=== PATIENT | male | born 1980 | race Caucasian/White ===

== ENCOUNTER 2016-09-10 09:33 | Emergency (ER) | payer BC ==
[~2016-09-10] VITALS: Wt 113.6 kg
[~2016-09-10 09:33] MED LIST: ACET500C5 PO; ALBU18HF INHALATION; AMO500 PO; AZIT250T94 PO; GUAI473L22 PO; HYDR-3498 PO; IBUP800T25 PO; PRED20 PO; PRED20TA PO
[2016-09-10 09:55] VITALS: Wt 113.6 kg
[2016-09-10] MEDS ORDERED: LIDOCAINE/MYLANTA 40 ML BTL PO STA (11:07)
[2016-09-10] MEDS ORDERED: FAMOTIDINE 20 MG TAB PO STA (11:07)
[2016-09-10] MEDS ORDERED: FAMO-18 PO (11:10)
--- NOTE | 2016-09-10 11:17 | ERD ---
ER Documentation Chief Complaint Date/Time DATE: 09/10/16 TIME: 11:10 Chief Complaint ABD CRAMPING W DIARRHEA HPI Patient is a 36-year-old male who presents to the emergency department with abdominal pain 3 days. Patient is that the pain is diffuse however, it is worse in the epigastric region. Patient states "it's burning with burping." Patient states the pain is occasionally crampy in nature. Patient states his current pain was is 1 out of 10. Patient reports one episode of nonbloody nonbilious vomiting yesterday. Patient states he is taking ibuprofen with some alleviation of his symptoms. Patient denies any diarrhea despite what the chief complaint states. Patient states he last had a bowel movement yesterday and it was normal soft and brown in color. Denies any pain with urination. Patient denies any fever, chills, nausea, chest pain and shortness breath, diaphoresis, arm pain, weakness, loss of consciousness. Patient denied any testicular pain, penile pain, penile discharge, pain with urination. ROS All systems reviewed and are negative except as per history of present illness. Medications Home Meds Active Scripts Famotidine* (Pepcid*) 20 Mg Tablet, 20 MG PO BID for 30 Days, TAB Prov:JAQUELIN MCCOLLUM PA-C 09/10/16 Acetaminophen* (Tylophen*) 500 Mg Capsule, 1 CAP PO Q6H Y for PAIN AND OR ELEVATED TEMP, #20 CAP Prov:AILEEN MAXWELL PA-C 01/20/16 Ibuprofen* (Motrin*) 800 Mg Tab, 800 MG PO Q6, #30 TAB Prov:AILEEN MAXWELL PA-C 01/20/16 Azithromycin* (Zithromax*) 250 Mg Tablet, 250 MG PO .SruthiPACK DIRECTED, #6 TAB TAKE 500 MG (2 TABS) THE FIRST DAY THEN 250 MG (1 TAB) DAYS 2-5 Prov:LUIS KING MD 12/11/15 Albuterol Sulfate* (Ventolin HFA*) 18 Gm Hfa.aer.ad, 2 PUFF INHALATION Q4H, #1 INHALER Prov:LUIS KING MD 12/11/15 Prednisone* (Prednisone*) 20 Mg Tab, 40 MG PO DAILY for 5 Days, TAB Prov:LUIS KING MD 12/11/15 Amoxicillin* (Amoxicillin*) 500 Mg Cap, 500 MG PO Q8, #30 CAP Prov:NIRAJ MCDONALD DO 11/29/15 Hydrocodone Bit-Acetaminophen* ([place]*) 5-325 Mg Tab, 1 TAB PO Q4H Y for PAIN, # 14 TAB Prov:NIRAJ MCDONALD DO 11/29/15 Prednisone (Prednisone) 20 Mg Tab, 40 MG PO DAILY, #5 TAB Prov:NIRAJ MCDONALD DO 11/29/15 Albuterol Sulfate* (Ventolin HFA*) 18 Gm Hfa.aer.ad, 2 PUFF INHALATION Q4H, #1 INHALER Prov:NIRAJ MCDONALD DO 11/29/15 Guaifenesin-Codeine Phosphate* (Guaifenesin* AC Cough Syrup) 473 Ml Liquid, 10 ML PO Q4H Y for COUGH, #240 ML Prov:POLLY MISHRA NP 10/02/15 Allergies Allergies: Coded Allergies: No Known Allergy (Unverified , 10/02/15) PMhx/Soc History of Surgery: Yes (MANDIBULAR SURGERY) Hx Respiratory Disorders: Yes (asthma) Hx Miscellaneous Medical Probl: Yes (borderline DM) Hx Alcohol Use: No Hx Substance Use: Yes (marijuana) Hx Tobacco Use: Yes Smoking Status: Current every day smoker FmHx Family History: diabetes Physical Exam Vitals Vital Signs Date Time Temp Pulse Resp B/P Pulse Ox O2 Delivery O2 Flow Rate FiO2 09/10/16 09:55 97.9 80 20 122/65 99 Physical Exam GENERAL: Well-developed, well-nourished male. Appears in no acute distress. HEAD: Normocephalic, atraumatic. EYES: Pupils are equally reactive bilaterally. EOMs grossly intact. No conjunctival erythema. ENT: Moist mucous membranes. No uvula deviation. No kissing tonsils. NECK: Supple. No lymphadenopathy or thyromegaly. No meningismus. LUNG: Clear to auscultation bilaterally. No rhonchi, wheezing, rales or coarse breath sounds. HEART: Regular rate and rhythm. No murmurs, rubs or gallops. ABDOMEN: No scars, ecchymosis or rashes noted. Soft, nontender, and nondistended. Positive bowel sounds in all four quadrants. No rebound tenderness , no guarding. (-) McBurneys point tenderness. No CVA tenderness. BACK: No midline tenderness. EXTREMITIES: Equal pulses bilaterally. No peripheral clubbing, cyanosis or edema. No unilateral leg swelling. NEUROLOGIC: Alert and oriented. Moving all four extremities without any difficulty. Normal speech. Steady gait. SKIN: Normal color. Warm and dry. No rashes or lesions. Results 24 hrs Current Medications Medications (Trade) Dose Ordered Sig/Melissa Route PRN Reason Start Time Stop Time Status Last Admin Dose Admin Famotidine (Pepcid) 20 mg ONCE STAT PO 09/10/16 11:07 09/10/16 11:09 DC 09/10/16 11:15 Miscellaneous Medication (Gi Cocktail (2)) 40 ml ONCE STAT PO 09/10/16 11:07 09/10/16 11:09 DC 09/10/16 11:15 Procedures/MDM MEDICAL DECISION MAKING: This is a 36-year-old male who presents emergency department with 3 days of his abdominal pain, worse in the epigastric region. Patient reports one episode of nonbloody nonbilious vomiting yesterday. Vital signs were reviewed. Patient is afebrile. Abdominal exam was unremarkable. He stated that he was no longer having any pain upon my examination. Patient was given a GI cocktail and famotidine here in the emergency department, which he states did improve his symptoms. At this time the patient's presentation is most consistent with gastritis versus abdominal pain of unknown etiology. I have a much lower clinical concern for acute coronary syndrome, AAA, mesenteric ischemia, lower lobe pneumonia, DKA, bowel perforation, bowel obstruction, cholecystitis, pancreatitis, splenic rupture, diverticulitis, UTI, pyelonephritis. PRESCRIPTIONS: Famotidine DISCHARGE: At this time, patient is stable for discharge and outpatient management. I have instructed the patient to follow-up with his/her primary care physician in 1-2 days. I have instructed the patient to promptly return to the ER at any time for any new or worsening symptoms including increased pain, nausea, vomiting, diarrhea, fever, weakness or LOC. The patient and/or family expressed understanding of and agreement with this plan. All questions were answered. Home care instructions were provided. Departure Diagnosis: Primary Impression: Abdominal pain Abdominal location: epigastric Qualified Code: R10.13 - Epigastric pain Condition: Stable Patient Instructions: Abdominal Pain, Gastritis (Adult) Referrals: [facility] YOU HAVE RECEIVED A MEDICAL SCREENING EXAM AND THE RESULTS INDICATE THAT YOU DO NOT HAVE A CONDITION THAT REQUIRES URGENT TREATMENT IN THE EMERGENCY DEPARTMENT. FURTHER EVALUATION AND TREATMENT OF YOUR CONDITION CAN WAIT UNTIL YOU ARE SEEN IN YOUR DOCTORS OFFICE WITHIN THE NEXT 1-2 DAYS. IT IS YOUR RESPONSIBILITY TO MAKE AN APPOINTMENT FOR FOLOW-UP CARE. IF YOU HAVE A PRIMARY DOCTOR --you should call your primary doctor and schedule an appointment IF YOU DO NOT HAVE A PRIMARY DOCTOR YOU CAN CALL OUR PHYSICIAN REFERRAL HOTLINE AT IF YOU CAN NOT AFFORD TO SEE A PHYSICIAN YOU CAN CHOSE FROM THE FOLLOWING [facility] [address] [facility] [address] [facility]. [facility] [address] [facility] [address] [facility] [facility] [address] [facility]. [facility]. [address] [facility]. [facility] YOU HAVE RECEIVED A MEDICAL SCREENING EXAM AND THE RESULTS INDICATE THAT YOU DO NOT HAVE A CONDITION THAT REQUIRES URGENT TREATMENT IN THE EMERGENCY DEPARTMENT. FURTHER EVALUATION AND TREATMENT OF YOUR CONDITION CAN WAIT UNTIL YOU ARE SEEN IN YOUR DOCTORS OFFICE WITHIN THE NEXT 1-2 DAYS. IT IS YOUR RESPONSIBILITY TO MAKE AN APPOINTMENT FOR FOLOW-UP CARE. IF YOU HAVE A PRIMARY DOCTOR --you should call your primary doctor and schedule and appointment IF YOU DO NOT HAVE A PRIMARY DOCTOR YOU CAN CALL OUR PHYSICIAN REFERRAL HOTLINE AT . IF YOU CAN NOT AFFORD TO SEE A PHYSICIAN YOU CAN CHOSE FROM THE FOLLOWING [facility] INSTITUTIONS: [facility] [address] [place] [address] [facility] [address] [place] [address] [facility] [address] [place] [address] Additional Instructions: Call your primary care doctor TOMORROW for an appointment during the next 1-2 days.See the doctor sooner or return here if your condition worsens before your appointment time. JAQUELIN MCCOLLUM PA-C Sep 10, 2016 11:17 JAQUELIN MCCOLLUM PA-C Sep 10, 2016 11:17
== END 2016-09-10 12:48 | disposition home or self-care (01) ==
LOC: FTE 09:33
DX: R10.13 Epigastric pain (principal); J45.909 Unspecified asthma, uncomplicated; F17.210 Nicotine dependence, cigarettes, uncomplicated
CPT/HCPCS: Z7610 ×2; 99283

== ENCOUNTER 2017-01-23 12:11 | Emergency (ER) | payer BC ==
[~2017-01-23] VITALS: Ht 185.4 cm; Wt 110.0 kg
[~2017-01-23 12:11] MED LIST changes: +FAMO-18 PO; -PRED20 PO
[2017-01-23 12:14] VITALS: Ht 185.4 cm; Wt 110.0 kg
--- NOTE | 2017-01-23 16:03 | ERD ---
ER Documentation Chief Complaint Date/Time DATE: 01/23/17 TIME: 16:01 Chief Complaint right arm pain, intermittent HPI 36-year-old male patient with no significant past medical history presents to the ED complaining of intermittent bilateral hand paresthesias that started 3 months ago. Reports that he feels like they twitch. Describes the pain as a sharp sensation and rates it a 4 out of 10. Denies any abdominal pain, head injuries, neck stiffness, fever, chills, nausea, vomiting, diarrhea. ROS All systems reviewed and are negative except as per history of present illness. Medications Home Meds Active Scripts Famotidine* (Pepcid*) 20 Mg Tablet, 20 MG PO BID for 30 Days, TAB Prov:JAQUELIN MCCOLLUM PA-C 09/10/16 Acetaminophen* (Tylophen*) 500 Mg Capsule, 1 CAP PO Q6H Y for PAIN AND OR ELEVATED TEMP, #20 CAP Prov:AILEEN MAXWELL PA-C 01/20/16 Ibuprofen* (Motrin*) 800 Mg Tab, 800 MG PO Q6, #30 TAB Prov:AILEEN MAXWELL PA-C 01/20/16 Azithromycin* (Zithromax*) 250 Mg Tablet, 250 MG PO .ZPACK DIRECTED, #6 TAB TAKE 500 MG (2 TABS) THE FIRST DAY THEN 250 MG (1 TAB) DAYS 2-5 Prov:LUIS KING MD 12/11/15 Albuterol Sulfate* (Ventolin HFA*) 18 Gm Hfa.aer.ad, 2 PUFF INHALATION Q4H, #1 INHALER Prov:LUIS KING MD 12/11/15 Prednisone* (Prednisone*) 20 Mg Tab, 40 MG PO DAILY for 5 Days, TAB Prov:LUIS KING MD 12/11/15 Amoxicillin* (Amoxicillin*) 500 Mg Cap, 500 MG PO Q8, #30 CAP Prov:NIRAJ MCDONALD DO 11/29/15 Hydrocodone Bit-Acetaminophen* ([place]*) 5-325 Mg Tab, 1 TAB PO Q4H Y for PAIN, # 14 TAB Prov:NIRAJ MCDONALD DO 11/29/15 Prednisone (Prednisone) 20 Mg Tab, 40 MG PO DAILY, #5 TAB Prov:NIRAJ MCDONALD DO 11/29/15 Albuterol Sulfate* (Ventolin HFA*) 18 Gm Hfa.aer.ad, 2 PUFF INHALATION Q4H, #1 INHALER Prov:NIRAJ MCDONALD DO 11/29/15 Guaifenesin-Codeine Phosphate* (Guaifenesin* AC Cough Syrup) 473 Ml Liquid, 10 ML PO Q4H Y for COUGH, #240 ML Prov:POLLY MISHRAChyna DOCUMENT REVIEWER 10/02/15 Allergies Allergies: Coded Allergies: No Known Allergy (Unverified , 10/02/15) PMhx/Soc History of Surgery: Yes (MANDIBULAR SURGERY) Hx Respiratory Disorders: Yes (asthma) Hx Miscellaneous Medical Probl: Yes (borderline DM) Hx Alcohol Use: No Hx Substance Use: Yes (marijuana) Hx Tobacco Use: Yes Smoking Status: Current every day smoker Physical Exam Vitals Vital Signs Date Time Temp Pulse Resp B/P Pulse Ox O2 Delivery O2 Flow Rate FiO2 01/23/17 12:14 98.6 85 18 140/79 99 Physical Exam Const: Npa-luk-muyosllzz, well-nourished. In no acute distress. Head: Atraumatic, normocephalic Eyes: Normal Conjunctiva without injection. No purulent discharge. PERRLA. EOMI ENT: Normal external ear. Ear canal without erythema. Tympanic membrane pearly padilla without effusion or bulging. Nasal canal clear with normal turbinates. Moist oropharynx without tonsillar exudates. Non-erythematous pharynx. Uvula midline. No drooling. No trismus. Neck: No cervical midline tenderness. Full range of motion. No meningismus. No cervical lymphadenopathy. No JVD. Resp: Clear to auscultation bilaterally. No wheezing, rhonchi, rales, or crackles. No accessory muscle use. No retractions. Cardio: Regular rate and rhythm. No murmurs, rubs or gallops. Skin: Normal skin turgor. No petechiae or rashes Ext: No cyanosis, or edema. Distal pulses intact bilaterally. Neur: Awake and alert. Normal gait. Normal coordination. Cranial Nerves II- VII intact. Normal finger to nose. Muscle strength 5/5. Sensation intact. Psych: Normal Mood and Affect Procedures/MDM 36-year-old male patient with no significant past medical history presents to the ED complaining of intermittent paresthesias of her bilateral hands. Patient is afebrile nontoxic appearing. Patient has normal vital signs. An EKG was ordered to further evaluate patient. EKG reviewed and interpreted by Dr. Mejia Rate/Rhythm: [67 bpm, Normal Sinus Rhythm] No ectopy, no ST elevations, no QT prolongation, normal axis. QRS, ST, T-waves: [No changes consistent w/ acute ischemia] Impression: [No evidence of ischemia or arrhythmia] Low suspicion for acute myocardial infarction, pneumothorax, pneumonia, cardiac tamponade, pulmonary embolism, AAA, aortic dissection, Boerhaave's syndrome, cardiac dysrhythmias,meningitis, intracranial bleed, seizure, stroke, TIA or other emergent conditions. Follow up with primary care physician in 1-2 days. Instructed patient to return to the ED sooner for any worsening symptoms. Patient's questions were answered. Patient understood and agreed with discharge plan. Patient discharged stable. Departure Diagnosis: Primary Impression: Paresthesias Condition: Stable Patient Instructions: Paraesthesias Referrals: [facility] YOU HAVE RECEIVED A MEDICAL SCREENING EXAM AND THE RESULTS INDICATE THAT YOU DO NOT HAVE A CONDITION THAT REQUIRES URGENT TREATMENT IN THE EMERGENCY DEPARTMENT. FURTHER EVALUATION AND TREATMENT OF YOUR CONDITION CAN WAIT UNTIL YOU ARE SEEN IN YOUR DOCTORS OFFICE WITHIN THE NEXT 1-2 DAYS. IT IS YOUR RESPONSIBILITY TO MAKE AN APPOINTMENT FOR FOLOW-UP CARE. IF YOU HAVE A PRIMARY DOCTOR --you should call your primary doctor and schedule an appointment IF YOU DO NOT HAVE A PRIMARY DOCTOR YOU CAN CALL OUR PHYSICIAN REFERRAL HOTLINE AT IF YOU CAN NOT AFFORD TO SEE A PHYSICIAN YOU CAN CHOSE FROM THE FOLLOWING [facility] CLINICS [facility] [address] [facility] [address] [facility]. [facility] [address] [facility] [address] [facility] [address] [facility]. [facility]. [address] [facility]. [facility] YOU HAVE RECEIVED A MEDICAL SCREENING EXAM AND THE RESULTS INDICATE THAT YOU DO NOT HAVE A CONDITION THAT REQUIRES URGENT TREATMENT IN THE EMERGENCY DEPARTMENT. FURTHER EVALUATION AND TREATMENT OF YOUR CONDITION CAN WAIT UNTIL YOU ARE SEEN IN YOUR DOCTORS OFFICE WITHIN THE NEXT 1-2 DAYS. IT IS YOUR RESPONSIBILITY TO MAKE AN APPOINTMENT FOR FOLOW-UP CARE. IF YOU HAVE A PRIMARY DOCTOR --you should call your primary doctor and schedule and appointment IF YOU DO NOT HAVE A PRIMARY DOCTOR YOU CAN CALL OUR PHYSICIAN REFERRAL HOTLINE AT . IF YOU CAN NOT AFFORD TO SEE A PHYSICIAN YOU CAN CHOSE FROM THE FOLLOWING [facility] INSTITUTIONS: [facility] [address] [place] [address] [facility] [address] [place] [address] [facility] [address] [place] [address] [facility] URGENT CARE/SPECIALTIES Additional Instructions: Call your primary care doctor TOMORROW for an appointment during the next 1-2 days.See the doctor sooner or return here if your condition worsens before your appointment time. MIGUEL ÁNGEL GONZALES PA-C January 23, 2017 16:03 MIGUEL ÁNGEL GONZALES PA-C January 23, 2017 16:03
== END 2017-01-23 15:54 | disposition home or self-care (01) ==
LOC: FTE 12:11
DX: R20.2 Paresthesia of skin (principal); J45.909 Unspecified asthma, uncomplicated; F17.210 Nicotine dependence, cigarettes, uncomplicated
CPT/HCPCS: 93005

== ENCOUNTER 2017-05-24 22:05 | Emergency (ER) | payer BC ==
[~2017-05-24] VITALS: Ht 182.9 cm; Wt 103.0 kg
[~2017-05-24 22:05] MED LIST changes: -AMO500 PO; +AMOX500C2 PO; -FAMO-18 PO; +FAMO-96 PO
[2017-05-24 22:10] VITALS: Ht 182.9 cm; Wt 103.0 kg
[2017-05-24] MEDS ORDERED: ALBU18HF INHALATION (23:24)
[2017-05-24] MEDS ORDERED: BENZ200C43 PO (23:24)
--- NOTE | 2017-05-25 00:36 | ERD ---
ER Documentation Chief Complaint Date/Time DATE: 05/25/17 TIME: 00:34 Chief Complaint cough x 1 day, colds, chills, vomiting, headache, sore throat HPI This patient is a 37-year-old male presenting to the emergency department with complaints of cough ongoing for 1 day. He also reports one episode of posttussive emesis which is intermittent. He was diagnosed with bronchitis at [facility] earlier today and given a prescription for an inhaler and discharged in stable condition. Patient is presenting stating he got no medication for cough. He denies shortness of breath, dizziness, nausea, vomiting, diarrhea, fever, or other symptoms currently. ROS All systems reviewed and are negative except as per history of present illness. Medications Home Meds Active Scripts Benzonatate* (Benzonatate*) 200 Mg Capsule, 200 MG PO TID Y for COUGH, #20 CAP Prov:DOMONIQUE MAYS PA-C 05/24/17 Albuterol Sulfate* (Ventolin HFA*) 18 Gm Hfa.aer.ad, 2 PUFF INHALATION Q4H, #1 INHALER Prov:DOMONIQUE MAYS PA-C 05/24/17 Famotidine* (Pepcid*) 20 Mg Tablet, 20 MG PO BID for 30 Days, TAB Prov:JAQUELIN MCCOLLUM PA-C 09/10/16 Acetaminophen* (Tylophen*) 500 Mg Capsule, 1 CAP PO Q6H Y for PAIN AND OR ELEVATED TEMP, #20 CAP Prov:AILEEN MAXWELL PA-C 01/20/16 Ibuprofen* (Motrin*) 800 Mg Tab, 800 MG PO Q6, #30 TAB Prov:AILEEN MAXWELL PA-C 01/20/16 Azithromycin* (Zithromax*) 250 Mg Tablet, 250 MG PO .SruthiPAFIDEL DIRECTED, #6 TAB TAKE 500 MG (2 TABS) THE FIRST DAY THEN 250 MG (1 TAB) DAYS 2-5 Prov:LUIS KING MD 12/11/15 Albuterol Sulfate* (Ventolin HFA*) 18 Gm Hfa.aer.ad, 2 PUFF INHALATION Q4H, #1 INHALER Prov:LUIS KING MD 12/11/15 Prednisone* (Prednisone*) 20 Mg Tab, 40 MG PO DAILY for 5 Days, TAB Prov:LUIS KING MD 12/11/15 Amoxicillin* (Amoxicillin*) 500 Mg Cap, 500 MG PO Q8, #30 CAP Prov:NIRAJ MCDONALD DO 11/29/15 Hydrocodone Bit-Acetaminophen* ([place]*) 5-325 Mg Tab, 1 TAB PO Q4H Y for PAIN, # 14 TAB Prov:NIRAJ MCDONALD DO 11/29/15 Prednisone (Prednisone) 20 Mg Tab, 40 MG PO DAILY, #5 TAB Prov:NIRAJ MCDONALD DO 11/29/15 Albuterol Sulfate* (Ventolin HFA*) 18 Gm Hfa.aer.ad, 2 PUFF INHALATION Q4H, #1 INHALER Prov:NIRAJ MCDONALD DO 11/29/15 Guaifenesin-Codeine Phosphate* (Guaifenesin* AC Cough Syrup) 473 Ml Liquid, 10 ML PO Q4H Y for COUGH, #240 ML Prov:POLLY MISHRA NP 10/02/15 Allergies Allergies: Coded Allergies: No Known Allergy (Unverified , 10/02/15) PMhx/Soc History of Surgery: Yes (MANDIBULAR SURGERY) Hx Respiratory Disorders: Yes (asthma) Hx Miscellaneous Medical Probl: Yes (borderline DM) Hx Alcohol Use: No Hx Substance Use: Yes (marijuana) Hx Tobacco Use: Yes Smoking Status: Current every day smoker Physical Exam Vitals Vital Signs Date Time Temp Pulse Resp B/P Pulse Ox O2 Delivery O2 Flow Rate FiO2 05/24/17 22:10 99.3 77 20 144/66 97 Physical Exam Const: Nontoxic, well-appearing male in no acute distress. Head: Atraumatic Eyes: Normal Conjunctiva ENT: Normal External Ears, Nose and Mouth. Neck: Full range of motion..~ No meningismus. Resp: Clear to auscultation bilaterally Cardio: Regular rate and rhythm, no murmurs Skin: No petechiae or rashes Back: No midline or flank tenderness Ext: No cyanosis, or edema Neur: Awake and alert Psych: Normal Mood and Affect Procedures/MDM 37-year-old male presents to the emergency department with complaints of cough. Vital signs are stable. Lung examination is essentially unremarkable. The patient likely has cough and bronchitis secondary to a viral upper respiratory infection. He is stable for outpatient management with a prescription for Ventolin and benzonatate. Low suspicion for life-threatening pathology at time of discharge. Follow-up with a primary care physician within 1-2 days advised. Strict ER return precautions were discussed. Departure Diagnosis: Primary Impression: Bronchitis Additional Impression: Cough Condition: Fair Patient Instructions: Bronchitis, No Antibiotic (Adult) Referrals: [facility] YOU HAVE RECEIVED A MEDICAL SCREENING EXAM AND THE RESULTS INDICATE THAT YOU DO NOT HAVE A CONDITION THAT REQUIRES URGENT TREATMENT IN THE EMERGENCY DEPARTMENT. FURTHER EVALUATION AND TREATMENT OF YOUR CONDITION CAN WAIT UNTIL YOU ARE SEEN IN YOUR DOCTORS OFFICE WITHIN THE NEXT 1-2 DAYS. IT IS YOUR RESPONSIBILITY TO MAKE AN APPOINTMENT FOR [facility]. IF YOU HAVE A PRIMARY DOCTOR --you should call your primary doctor and schedule an appointment IF YOU DO NOT HAVE A PRIMARY DOCTOR YOU CAN CALL OUR PHYSICIAN REFERRAL HOTLINE AT IF YOU CAN NOT AFFORD TO SEE A PHYSICIAN YOU CAN CHOSE FROM THE FOLLOWING [facility] [address] [facility]. [facility] [address] [facility]. [facility] [address] [facility] [address] [facility]. [facility] [address] [facility]. [facility]. [address] Additional Instructions: Follow up with your PCP within the next 1-3 days for a repeat evaluation. If you require a referral to a specialist, your Primary Care Provider may be able to provide this for you. In most patient cases, a referral is not required. If you have further questions regarding this matter, please ask your Primary Care Provider. Return the the emergency department immediately if symptoms worsen or change. If you have any questions regarding medications, ask your pharmacist or us before you leave. If any adverse reactions, occur while taking your medications, discontinue the treatment and return to the emergency department immediately. If any new or worsening symptoms, uncontrolled fevers, or other unexplained symptoms occur, return to the emergency department immediately. Take your medications as directed, and complete the entire course of treatment. DOMONIQUE MAYS PA-C May 25, 2017 00:36
== END 2017-05-25 00:29 | disposition home or self-care (01) ==
LOC: FTE 22:05
DX: J40 Bronchitis, not specified as acute or chronic (principal); F17.210 Nicotine dependence, cigarettes, uncomplicated
CPT/HCPCS: 99284

== ENCOUNTER 2017-06-03 07:46 | Emergency (ER) | payer BC ==
[~2017-06-03] VITALS: Ht 180.3 cm; Wt 101.5 kg
[~2017-06-03 07:46] MED LIST changes: +BENZ200C43 PO
[2017-06-03 07:48] VITALS: Ht 180.3 cm; Wt 101.5 kg
--- NOTE | 2017-06-03 08:31 | ERD ---
ER Documentation Chief Complaint Date/Time DATE: 06/03/17 TIME: 08:24 Chief Complaint Complains of SOB Hx of Asthma HPI This is a 37-year-old male who presents to the emergency department today stating that he feels short of breath and has a cough. Patient is here with his fiance who states that in the last 3 weeks he has gone to 3 different hospitals. States that he was admitted at [facility] for COPD a couple weeks ago but left AGAINST MEDICAL ADVICE because he "did not like the doctors there". States he does not use his inhaler like he is supposed to. States he is a former smoker and has not smoked since he was admitted a couple weeks ago. States he has felt chilled but denies any other new symptoms. She has not followed up with a primary care doctor or pulmonology specialist. ROS All systems reviewed and are negative except as per history of present illness. Medications Home Meds Active Scripts Benzonatate* (Benzonatate*) 200 Mg Capsule, 200 MG PO TID Y for COUGH, #20 CAP Prov:DOMONIUQE MAYS PA-C 05/24/17 Albuterol Sulfate* (Ventolin HFA*) 18 Gm Hfa.aer.ad, 2 PUFF INHALATION Q4H, #1 INHALER Prov:DOMONIQUE MAYS PA-C 05/24/17 Famotidine* (Pepcid*) 20 Mg Tablet, 20 MG PO BID for 30 Days, TAB Prov:JAQUELIN MCCOLLUM PA-C 09/10/16 Acetaminophen* (Tylophen*) 500 Mg Capsule, 1 CAP PO Q6H Y for PAIN AND OR ELEVATED TEMP, #20 CAP Prov:AILEEN MAXWELL PA-C 01/20/16 Ibuprofen* (Motrin*) 800 Mg Tab, 800 MG PO Q6, #30 TAB Prov:AILEEN MAXWELL PA-C 01/20/16 Azithromycin* (Zithromax*) 250 Mg Tablet, 250 MG PO .CRYSTAL DIRECTED, #6 TAB TAKE 500 MG (2 TABS) THE FIRST DAY THEN 250 MG (1 TAB) DAYS 2-5 Prov:LUIS KING MD 12/11/15 Albuterol Sulfate* (Ventolin HFA*) 18 Gm Hfa.aer.ad, 2 PUFF INHALATION Q4H, #1 INHALER Prov:LUIS KING MD 12/11/15 Prednisone* (Prednisone*) 20 Mg Tab, 40 MG PO DAILY for 5 Days, TAB Prov:LUIS KING MD 12/11/15 Amoxicillin* (Amoxicillin*) 500 Mg Cap, 500 MG PO Q8, #30 CAP Prov:NIRAJ MCDONALD DO 11/29/15 Hydrocodone Bit-Acetaminophen* ([place]*) 5-325 Mg Tab, 1 TAB PO Q4H Y for PAIN, # 14 TAB Prov:NIRAJ MCDONALD DO 11/29/15 Prednisone (Prednisone) 20 Mg Tab, 40 MG PO DAILY, #5 TAB Prov:NIRAJ MCDONALD DO 11/29/15 Albuterol Sulfate* (Ventolin HFA*) 18 Gm Hfa.aer.ad, 2 PUFF INHALATION Q4H, #1 INHALER Prov:NIRAJ MCDONALD DO 11/29/15 Guaifenesin-Codeine Phosphate* (Guaifenesin* AC Cough Syrup) 473 Ml Liquid, 10 ML PO Q4H Y for COUGH, #240 ML Prov:POLLY MISHRA NP 10/02/15 Allergies Allergies: Coded Allergies: No Known Allergy (Unverified , 10/02/15) PMhx/Soc History of Surgery: Yes (MANDIBULAR SURGERY) Hx Respiratory Disorders: Yes (asthma) Hx Miscellaneous Medical Probl: Yes (borderline DM) Hx Alcohol Use: No Hx Substance Use: Yes (marijuana) Hx Tobacco Use: Yes Smoking Status: Current every day smoker Physical Exam Vitals Vital Signs Date Time Temp Pulse Resp B/P Pulse Ox O2 Delivery O2 Flow Rate FiO2 06/03/17 07:48 98.3 56 20 139/71 98 Physical Exam Const: NAD Head: Atraumatic Eyes: Normal Conjunctiva ENT: Normal External Ears, Nose and Mouth. Neck: Full range of motion..~ No meningismus. Resp: Clear to auscultation bilaterally Cardio: Regular rate and rhythm, no murmurs Abd: Soft, non tender, non distended. Normal bowel sounds Skin: No petechiae or rashes Back: No midline or flank tenderness Ext: No cyanosis, or edema Neur: Awake and alert Psych: Normal Mood and Affect Results 24 hrs DIAGNOSTIC IMAGING REPORT Patient: JC SORTO : 1980 Age: 37 Sex: M MR #: [id number] DOS: 06/03/17 0000 Ordering MD: AILEEN MAXWELL PA-C Location: [facility] Room/Bed: PROCEDURE: CHEST RADIOGRAPH CLINICAL INDICATION: Cough. TECHNIQUE: Single frontal view of the chest were obtained. COMPARISON: 01/20/2016. FINDINGS: There is no consolidation or pleural effusion. There is no pneumothorax. The cardiomediastinal structures unremarkable. The visualized bony structures are unremarkable. IMPRESSION: Unremarkable single-view chest radiograph. RPTAT: HMZ .Xiang Romano MD, MD Date Time Electronically viewed and signed by .Xiang Romano MD, on 06/03/2017 09:44 .Z/ CC: AILEEN MAXWELL PA-C Procedures/MDM This is a 37-year-old male presents to the emergency department today complaining of shortness of breath and cough that has been ongoing for a while. Upon review of patient's medical records patient was seen here in the emergency department on May 24, 2017 with likely bronchitis. Patient had come to [facility] after evaluated earlier that day at [facility]. An TERRY report shows that the patient was admitted to [facility] on May 25 for COPD with acute exacerbation, anxiety disorder, nicotine dependence, cannabis use, bipolar disorder and a unspecified viral infection. Today patient denied any other past medical history. I explained to the patient and his fiance that he needs further evaluation by pulmonology specialist. She was afebrile and otherwise well-appearing. His oxygen saturation is 98%. I did explain to the patient that given his new complaints of chills and persistent cough I would obtain a chest x-ray. Chest x-ray is unremarkable. There is no consolidation or pleural effusion. There is no pneumothorax. At this time is consistent of shortness of breath possibly related to COPD as initial diagnosis at outside hospital. Low suspicion for pneumonia, PE, abscess , pleural effusion, pneumothorax. I did further explain to the patient that I would give him a list of pulmonology referrals. He may continue to take his inhaler as prescribed At this time the patient is stable for discharge and outpatient management. Patient should follow up with their PCP in the next 1-2 days. They may return to the emergency department sooner for any persistent or worsening of symptoms. Patient and fiance understood and agreed with the plan. Departure Diagnosis: Primary Impression: Shortness of breath Condition: AILEEN Reddy PA-C Jun 03, 2017 08:31
--- NOTE | 2017-06-03 09:44 | RADRPT ---
PROCEDURE: CHEST RADIOGRAPH CLINICAL INDICATION: Cough. TECHNIQUE: Single frontal view of the chest were obtained. COMPARISON: 01/20/2016. FINDINGS: There is no consolidation or pleural effusion. There is no pneumothorax. The cardiomediastinal stru ctures unremarkable. The visualized bony structures are unremarkable. IMPRESSION: Unremarkable single-view chest radiograph. RPTAT: HMZ .Xiang Romano MD, Date Time Electronically viewed and signed by .Xiang Romano MD, on 06/03/2017 09:44 .Z/
== END 2017-06-03 10:19 | disposition home or self-care (01) ==
LOC: FTE 07:46
DX: J45.909 Unspecified asthma, uncomplicated (principal); F17.210 Nicotine dependence, cigarettes, uncomplicated
CPT/HCPCS: 71010

== ENCOUNTER 2017-08-01 01:52 | Emergency (ER) | payer BC ==
[~2017-08-01] VITALS: Ht 182.9 cm; Wt 105.7 kg
[2017-08-01 01:57] VITALS: Ht 182.9 cm; Wt 105.7 kg
[2017-08-01] MEDS ORDERED: AMOX1TAB10 PO (02:49)
[2017-08-01] MEDS ORDERED: IBUP-1542 PO (02:49)
[2017-08-01] MEDS ORDERED: HYDR-906 PO (02:49)
--- NOTE | 2017-08-01 03:17 | ERD ---
ER Documentation Chief Complaint Chief Complaint toothache x 2wk. Dentist appt on 08/15. No relief w/current pain meds HPI 37-year-old male presents here to emergency department for complaint of left lower molar pain, has impacted more alert with tooth decay, is scheduled to have removal of the molar on 15 August. Patient continues to have pain, 8/10 scale, not better or worse with anything. Patient does not have any fever chills. Patient does not have any facial swelling. Able to open and close her mouth without any difficulty. ROS All systems reviewed and are negative except as per history of present illness. Medications Home Meds Active Scripts Hydrocodone/Acetaminophen (Valatie 5-325 Tablet) 1 Each Tablet, 1 TAB PO Q6H Y for SEVERE PAIN LEVEL 7-10, #20 TAB Prov:MIRYAM GALARZA NP 08/01/17 Ibuprofen* (Motrin*) 600 Mg Tab, 600 MG PO Q6H Y for PAIN AND OR ELEVATED TEMP, #30 TAB Prov:MIRYAM GALARZA NP 08/01/17 Amoxicillin/Potassium Clav (Amox-Clav 875-125 mg Tablet) 875-125 mg Tab, 1 TAB PO BID for 10 Days, #20 TAB Prov:MIRYAM GALARZA NP 08/01/17 Benzonatate* (Benzonatate*) 200 Mg Capsule, 200 MG PO TID Y for COUGH, #20 CAP Prov:DOMONIQUE MAYS PA-C 05/24/17 Albuterol Sulfate* (Ventolin HFA*) 18 Gm Hfa.aer.ad, 2 PUFF INHALATION Q4H, #1 INHALER Prov:DOMONIQUE MAYS PA-C 05/24/17 Famotidine* (Pepcid*) 20 Mg Tablet, 20 MG PO BID for 30 Days, TAB Prov:JAQUELIN MCCOLLUM PA-C 09/10/16 Acetaminophen* (Tylophen*) 500 Mg Capsule, 1 CAP PO Q6H Y for PAIN AND OR ELEVATED TEMP, #20 CAP Prov:AILEEN MAXWELL PA-C 01/20/16 Ibuprofen* (Motrin*) 800 Mg Tab, 800 MG PO Q6, #30 TAB Prov:AILEEN MAXWELL PA-C 01/20/16 Azithromycin* (Zithromax*) 250 Mg Tablet, 250 MG PO .ZPACK DIRECTED, #6 TAB TAKE 500 MG (2 TABS) THE FIRST DAY THEN 250 MG (1 TAB) DAYS 2-5 Prov:LUIS KING MD 12/11/15 Albuterol Sulfate* (Ventolin HFA*) 18 Gm Hfa.aer.ad, 2 PUFF INHALATION Q4H, #1 INHALER Prov:LUIS KING MD 12/11/15 Prednisone* (Prednisone*) 20 Mg Tab, 40 MG PO DAILY for 5 Days, TAB Prov:LUIS KING MD 12/11/15 Amoxicillin* (Amoxicillin*) 500 Mg Cap, 500 MG PO Q8, #30 CAP Prov:NIRAJ MCDONALD DO 11/29/15 Hydrocodone Bit-Acetaminophen* (Valatie*) 5-325 Mg Tab, 1 TAB PO Q4H Y for PAIN, # 14 TAB Prov:NIRAJ MCDONALD DO 11/29/15 Prednisone (Prednisone) 20 Mg Tab, 40 MG PO DAILY, #5 TAB Prov:NIRAJ MCDONALD DO 11/29/15 Albuterol Sulfate* (Ventolin HFA*) 18 Gm Hfa.aer.ad, 2 PUFF INHALATION Q4H, #1 INHALER Prov:NIRAJ MCDONALD DO 11/29/15 Guaifenesin-Codeine Phosphate* (Guaifenesin* AC Cough Syrup) 473 Ml Liquid, 10 ML PO Q4H Y for COUGH, #240 ML Prov:POLLY MISHRA NP 10/02/15 Allergies Allergies: Coded Allergies: No Known Allergy (Unverified , 08/01/17) PMhx/Soc History of Surgery: Yes (MANDIBULAR SURGERY) Anesthesia Reaction: No Hx Respiratory Disorders: Yes (asthma) Hx Cardiac Disorders: No Hx Psychiatric Problems: No Hx Miscellaneous Medical Probl: Yes (borderline DM) Hx Alcohol Use: Yes Hx Substance Use: Yes (marijuana) Hx Tobacco Use: Yes Smoking Status: Current every day smoker FmHx Family History: No coronary disease, No diabetes, No other Physical Exam Vitals Vital Signs Date Time Temp Pulse Resp B/P Pulse Ox O2 Delivery O2 Flow Rate FiO2 08/01/17 01:57 97.6 54 18 140/92 98 Physical Exam GENERAL: The patient is well developed and appropriate for usual state of health, in no apparent distress. HEENT: Atraumatic. Ears: Normal tympanic membrane, no erythema or bulging. No ear canal swelling. No ear discharge. Nose: normal nasal turbinates, no erythema or swelling. Normal nasal discharge. Throat: oropharynx clear. No tonsillar swelling or tonsillar exudates. No lymphadenopathy. Noted left lower third molar to be impacted with tooth decay. No facial swelling. CHEST: Clear to auscultation bilaterally. There are no rales, wheezes or rhonchi. HEART: Regular rate and rhythm. No murmurs, clicks, rubs or gallops. No S3 or S4. ABDOMEN: Soft, nontender and nondistended. Good bowel sounds. No rebound or guarding. No gross peritonitis. No gross organomegaly or masses. No Martinez sign or McBurney point tenderness. BACK: No midline or flank tenderness. EXTREMITIES: Equal pulses bilaterally. There is no peripheral clubbing, cyanosis or edema. No focal swelling or erythema. Full range of motion. Grossly neurovascularly intact. NEURO: Alert and oriented. Cranial nerves 2-12 intact. Motor strength in all 4 extremities with 5/5 strength. Sensation grossly intact. Normal speech and gait. SKIN: There is no apparent rash or petechia. The skin is warm and dry. HEMATOLOGIC AND LYMPHATIC: There is no evidence of excessive bruising or lymphedema. No gross cervical, axillary, or inguinal lymphadenopathy. Procedures/MDM Medical decision making: Patient symptoms was likely is consistent with dental pain, most likely from impacted molar and tooth decay, no symptoms of any dental abscess. No symptoms of any sepsis at this time, patient appears well and hemodynamically stable. Patient denies any trauma in affected area. Procedure was given for Augmentin, ibuprofen and Valatie, is advised to see dentist as per appointment and remove the impacted Ros[place]. Patient was advised to return to emergency department for any worsening symptoms. Disposition: Home. Stable. Departure Diagnosis: Primary Impression: Toothache Condition: Stable Patient Instructions: Dental Pain Referrals: [facility] ([facility] walk in clinic) MIRYAM GALARZA NP Aug 01, 2017 03:17
== END 2017-08-01 03:04 | disposition home or self-care (01) ==
LOC: FTE 01:52
DX: K08.89 Other specified disorders of teeth and supporting structures (principal); J45.909 Unspecified asthma, uncomplicated; F17.210 Nicotine dependence, cigarettes, uncomplicated
CPT/HCPCS: 99284

== ENCOUNTER → 2017-11-30 | Emergency (ER) | END | disposition home or self-care (01) ==

== ENCOUNTER 2017-12-13 10:08 | Emergency (ER) | END 2017-12-13 13:13 | disposition home or self-care (01) ==

== ENCOUNTER 2017-12-20 09:08 | Emergency (ER) | END 2017-12-20 12:36 | disposition home or self-care (01) ==

== ENCOUNTER 2017-12-28 16:52 | Emergency (ER) | END 2017-12-28 17:26 | disposition home or self-care (01) ==

== ENCOUNTER 2018-01-09 15:58 | Emergency (ER) | END 2018-01-09 18:40 | disposition home or self-care (01) ==

== ENCOUNTER 2018-01-25 13:01 | Emergency (ER) | END 2018-01-25 17:26 | disposition home or self-care (01) ==

== ENCOUNTER 2018-03-06 09:20 | Emergency (ER) | END 2018-03-06 11:52 | disposition home or self-care (01) ==

== ENCOUNTER 2018-03-22 09:07 | Emergency (ER) | END 2018-03-22 10:47 | disposition home or self-care (01) ==

== ENCOUNTER 2018-05-28 00:03 | Emergency (ER) | END 2018-05-28 05:03 | disposition home or self-care (01) ==

== ENCOUNTER 2018-09-19 13:41 | Emergency (ER) | payer BC ==
[~2018-09-19] VITALS: Wt 115.9 kg
[~2018-09-19 13:41] MED LIST changes: -ALBU18HF INHALATION; +ALBU8.5H8 INH; -AMOX500C2 PO; -AZIT250T94 PO; -BENZ200C43 PO; -FAMO-96 PO; -GUAI473L22 PO; -HYDR-3498 PO; +IBUP-1542 PO; -IBUP800T25 PO; +IBUP800T48 PO; -PRED20TA PO; +PRED50TA PO; +TRAM50TA2 PO
--- NOTE | 2018-09-19 17:53 | ERD ---
ER Documentation Chief Complaint Chief Complaint 'heavy breathing' since 'smoking wax' x1d. speaking compl sentence. no CP HPI 38-year-old male wanting to be checked for infection. Patient states that he smoked too much water marijuana yesterday, which caused him to feel nauseous and vomiting nonstop. He called the ambulance and was taken to [facility]. He was told at [place] that he had a systemic infection with elevated white blood cell count. However, he signed out AMA refusing further evaluation and treatment yesterday. He came back here today want to be evaluated for his infection. Patient also reports runny nose and diarrhea for 3 days. Along with shortness of breath on exertion and elevated heart rate at times. Denies vomiting today. Denies fever or chills. Denies abdominal pain. ROS All systems reviewed and are negative except as per history of present illness. Medications Home Meds Active Scripts Tramadol HCl (Tramadol HCl) 50 Mg Tablet, 50 MG PO Q6 PRN for SEVERE PAIN LEVEL 7-10, #20 TAB Prov:MIRYAM GALARZA NP 05/28/18 Ibuprofen* (Motrin*) 600 Mg Tab, 600 MG PO Q6H PRN for PAIN AND OR ELEVATED TEM P, #30 TAB Prov:MIRYAM GALARZA NP 05/28/18 Acetaminophen* (Tylophen*) 500 Mg Capsule, 1 CAP PO Q6H PRN for PAIN AND OR ELEVATED TEMP, #30 CAP Prov:AILEEN MAXWELL PA-C 03/22/18 Ibuprofen* (Motrin*) 600 Mg Tab, 600 MG PO Q6, #30 TAB Prov:AILEEN MAXWELL PA-C 03/22/18 Ibuprofen* (Motrin*) 800 Mg Tab, 800 MG PO Q6, #30 TAB Prov:ALEKS MACARIO PA-C 03/06/18 Prednisone* (Prednisone*) 50 Mg Tablet, 50 MG PO DAILY for 5 Days, TAB Prov:ENOC MELCHOR MD 01/25/18 Albuterol Sulfate* (Proair HFA*) 8.5 Gm Hfa.aer.ad, 2 PUFF INH Q6H PRN for WHEEZING AND SOB, #1 INHALER Prov:ENOC MELCHOR MD 01/25/18 Allergies Allergies: Coded Allergies: No Known Allergy (Unverified , 09/19/18) PMhx/Soc History of Surgery: Yes (MANDIBULAR SURGERY) Anesthesia Reaction: No Hx Respiratory Disorders: Yes (asthma) Hx Cardiac Disorders: No Hx Psychiatric Problems: No Hx Miscellaneous Medical Probl: Yes (borderline DM) Hx Alcohol Use: Yes (socially) Hx Substance Use: Yes (marijuana) Hx Tobacco Use: Yes Smoking Status: Current every day smoker Physical Exam Vitals Vital Signs Date Temp Pulse Resp B/P (MAP) Pulse Ox O2 O2 Flow FiO2 Time Delivery Rate 09/19/18 98.8 78 16 141/73 96 13:46 (95) Physical Exam General: Well-developed, well-nourished, conscious and coherent, in no distress Skin: Warm and dry without rash, good texture and turgor Head: Normocephalic without evidence of trauma Nose/Face: Without rhinorrhea Neck: Supple without meningismus or adenopathy. Carotids are equal. Trachea midline. No bruits or JVD Chest: Normal AP diameter. Good expansion without retractions. Nontender. Lungs are clear to auscultate bilaterally with good tidal volume Heart: Regular rate and rhythm. No murmur, rub, or gallops heard Abdomen: Soft and nontender without masses, guarding, or rebound. Bowel sounds are active. No hepatosplenomegaly Extremities: Full range of motion. Good strength bilaterally. No erythema, ecchymosis, or edema. Peripheral pulses are intact. Sensation intact Neuro: Alert and oriented 4, GCS 15. Result Diagram: 09/19/18 1621 09/19/18 1621 Results 24 hrs Laboratory Tests Test 09/19/18 16:11 09/19/18 16:21 Urine Color YELLOW Urine Clarity CLOUDY Urine pH 7.0 Urine Specific [place] 1.019 Urine Ketones NEGATIVE mg/dL Urine Nitrite NEGATIVE mg/dL Urine Bilirubin NEGATIVE mg/dL Urine Urobilinogen NEGATIVE mg/dL Urine Leukocyte Esterase NEGATIVE Kale/ul Urine Microscopic RBC 0 /HPF Urine Microscopic WBC 0 /HPF Urine Amorphous Crystals FEW /HPF Urine Hemoglobin NEGATIVE mg/dL Urine Glucose NEGATIVE mg/dL Urine Total Protein NEGATIVE mg/dl Urine Opiates Screen Negative Urine Barbiturates Negative Urine Amphetamines Screen Negative Urine Benzodiazepines Screen Negative Urine Cocaine Screen Negative Urine Cannabinoids Positive White Blood Count 8.2 10^3/ul Red Blood Count 5.37 10^6/ul Hemoglobin 13.9 g/dl Hematocrit 43.2 % Mean Corpuscular Volume 80.4 fl Mean Corpuscular Hemoglobin 25.9 pg Mean Corpuscular Hemoglobin Concent 32.2 g/dl Red Cell Distribution Width 14.2 % Platelet Count 229 10^3/UL Mean Platelet Volume 11.3 fl Immature Granulocytes % 0.400 % Neutrophils % 65.3 % Lymphocytes % 24.5 % Monocytes % 7.4 % Eosinophils % 2.2 % Basophils % 0.2 % Nucleated Red Blood Cells % 0.0 /100WBC Immature Granulocytes # 0.030 10^3/ul Neutrophils # 5.4 10^3/ul Lymphocytes # 2.0 10^3/ul Monocytes # 0.6 10^3/ul Eosinophils # 0.2 10^3/ul Basophils # 0.0 10^3/ul Nucleated Red Blood Cells # 0.0 10^3/ul Sodium Level 143 mmol/L Potassium Level 4.1 mmol/L Chloride Level 107 mmol/L Carbon Dioxide Level 27 mmol/L Anion Gap 9 Blood Urea Nitrogen 20 mg/dl Creatinine 1.16 mg/dl Est Glomerular Filtrat Rate mL/min > 60 mL/min Glucose Level 110 mg/dl Calcium Level 9.5 mg/dl Total Bilirubin 0.0 mg/dl Direct Bilirubin 0.00 mg/dl Indirect Bilirubin 0.0 mg/dl Aspartate Amino Transf (AST/SGOT) 20 IU/L Alanine Aminotransferase (ALT/SGPT) 25 IU/L Alkaline Phosphatase 72 IU/L Total Protein 6.8 g/dl Albumin 4.1 g/dl Globulin 2.70 g/dl Albumin/Globulin Ratio 1.51 Procedures/MDM CBC: no e/o of systemic infection or severe anemia CMP: no e/o severe acidosis, alkalosis, renal failure, diabetic ketoacidosis, liver disease Urine: no e/o acute infection or hematuria Chest X-ray 1V Interpreted by me: Soft Tissue: No acute abnor malities Bones: No acute abnormalities Mediastinum/Cardiac Silhouette/Lungs: No acute abnormalities, mild right lower lobe atelectasis. Urine drug screen is positive for cannabinoids, but negative for everything else. Patient does not have any sign of systemic infection at this time. I think likely the elevated white blood cell count yesterday is secondary to hyperemesis after cannabis consumption. Although patient reports shortness of breath on exertion, he has no sign of pneumonia, pneumothorax, CHF, or PE. Patient appears well, stable for discharge and outpatient management. Medical decision making shared with patient and family. Education provided to patient and family. Patient and family expressed understanding of the plan. Medications on discharge: None. Follow-up: Primary care provider in 2-3 days or return to ED if worse. Disclaimer: Inadvertent spelling and grammatical errors are likely due to EHR/dictation software use and do not reflect on the overall quality of patient care. Also, please note that the electronic time recorded on this note does not necessarily reflect the actual time of the patient encounter. Departure Diagnosis: Primary Impression: Shortness of breath Condition: Stable Patient Instructions: Normal Exam, (Child) (Adult) Referrals: PENDING SALE TO [facility] YOU HAVE RECEIVED A MEDICAL SCREENING EXAM AND THE RESULTS INDICATE THAT YOU DO NOT HAVE A CONDITION THAT REQUIRES URGENT TREATMENT IN THE EMERGENCY DEPARTMENT. FURTHER EVALUATION AND TREATMENT OF YOUR CONDITION CAN WAIT UNTIL YOU ARE SEEN IN YOUR DOCTORS OFFICE WITHIN THE NEXT 1-2 DAYS. IT IS YOUR RESPONSIBILITY TO MAKE AN APPOINTMENT FOR FOLOW-UP CARE. IF YOU HAVE A PRIMARY DOCTOR --you should call your primary doctor and schedule an appointment IF YOU DO NOT HAVE A PRIMARY DOCTOR YOU CAN CALL OUR PHYSICIAN REFERRAL HOTLINE AT IF YOU CAN NOT AFFORD TO SEE A PHYSICIAN YOU CAN CHOSE FROM THE FOLLOWING [facility] [address] [facility]. [facility] [address] [facility]. [place] [address] [facility] [facility] [address] [facility]. [facility] [address] [facility]. [facility]. [address] Additional Instructions: Call your primary care doctor TOMORROW for an appointment during the next 2-3 days.See the doctor sooner or return here if your condition worsens before your appointment time. LUCRECIA GARCIAS NP Sep 19, 2018 17:53
[2018-09-19 18:01] VITALS: BP 156/82; PULSE 56; RESP 16
== END 2018-09-19 18:03 | disposition home or self-care (01) ==
LOC: FTE 13:41
DX: R06.02 Shortness of breath (principal); E11.9 Type 2 diabetes mellitus without complications; F17.210 Nicotine dependence, cigarettes, uncomplicated; J45.909 Unspecified asthma, uncomplicated
CPT/HCPCS: 71045; 80053; 80307; 81001; 85025

== ENCOUNTER 2019-01-17 08:36 | Emergency (ER) | payer BC ==
[~2019-01-17] VITALS: Ht 182.9 cm; Wt 101.0 kg
[2019-01-17 08:38] VITALS: BP 153/90; PULSE 52; RESP 18; Ht 182.9 cm; Wt 101.0 kg
[2019-01-17] MEDS ORDERED: KETOROLAC 60 MG INJ IM STA ×2 (08:52→09:25)
[2019-01-17] MEDS ORDERED: METHYLPREDNISOLONE 125 MG INJ IM ONE (09:00)
[2019-01-17] MEDS ORDERED: CYCL10TA7 PO (09:26)
[2019-01-17] MEDS ORDERED: IBUP800T48 PO (09:26)
--- NOTE | 2019-01-17 09:32 | ERD ---
ER Documentation Chief Complaint Chief Complaint pt is bib self with c/o back pain for 5-6 days unk cause HPI This is a 38 year-old male who presents ED with complaints of right upper back pain x1 week. Patient denies any fall or injury to account for pain. Pain aggravated by movement and twisting. Alleviated by ibuprofen. Patient has had similar pain in the past and was treated with ibuprofen and muscle relaxer. Denies fever, chills, chest pain, shortness of breath, trouble breathing, cough, bowel/bladder incontinence, history of IV drug abuse, saddle paresthesias and all other symptoms. No known drug allergies. ROS All systems reviewed and are negative except as per history of present illness. Medications Home Meds Active Scripts Ibuprofen* (Motrin*) 800 Mg Tab, 800 MG PO Q6, #30 TAB Prov:SHELIA DONNELLY PA-C 01/17/19 Cyclobenzaprine Hcl* (Cyclobenzaprine Hcl*) 10 Mg Tablet, 10 MG PO TID, #9 TAB Prov:SHELIA DONNELLY PA-C 01/17/19 Tramadol HCl (Tramadol HCl) 50 Mg Tablet, 50 MG PO Q6 PRN for SEVERE PAIN LEVEL 7-10, #20 TAB Prov:MIRYAM GALARZA NP 05/28/18 Ibuprofen* (Motrin*) 600 Mg Tab, 600 MG PO Q6H PRN for PAIN AND OR ELEVATED TEMP, #30 TAB Prov:MIRYAM GALARZA NP 18 Acetaminophen* (Tylophen*) 500 Mg Capsule, 1 CAP PO Q6H PRN for PAIN AND OR ELEVATED TEMP, #30 CAP Prov:AILEEN MAXWELL PA-C 03/22/18 Ibuprofen* (Motrin*) 600 Mg Tab, 600 MG PO Q6, #30 TAB Prov:AILEEN MAXWELL PA-C 03/22/18 Ibuprofen* (Motrin*) 800 Mg Tab, 800 MG PO Q6, #30 TAB Prov:ALEKS MACARIO PA-C 03/06/18 Prednisone* (Prednisone*) 50 Mg Tablet, 50 MG PO DAILY for 5 Days, TAB Prov:ENOC MELCHOR MD 01/25/18 Albuterol Sulfate* (Proair HFA*) 8.5 Gm Hfa.aer.ad, 2 PUFF INH Q6H PRN for WHEEZING AND SOB, #1 INHALER Prov:ENOC MELCHOR MD 01/25/18 Allergies Allergies: Coded Allergies: No Known Allergy (Unverified , 09/19/18) PMhx/Soc History of Surgery: Yes (MANDIBULAR SURGERY) Anesthesia Reaction: No Hx Respiratory Disorders: Yes (asthma) Hx Cardiac Disorders: No Hx Psychiatric Problems: No Hx Miscellaneous Medical Probl: Yes (borderline DM) Hx Alcohol Use: Yes (socially) Hx Substance Use: Yes (marijuana) Hx Tobacco Use: Yes Smoking Status: Current every day smoker FmHx Family History: No diabetes Physical Exam Vitals Vital Signs Date Temp Pulse Resp B/P (MAP) Pulse Ox O2 O2 Flow FiO2 Time Delivery Rate 01/17/19 98.4 52 18 153/90 100 08:38 (111) Physical Exam Physical Exam Vitals signs: Reviewed by me. General: Well developed, well nourished, in no acute distress. Patient is awake and alert. Head: Normocephalic, atraumatic. Eyes: Normal conjunctiva, Pupils PERRLA, EOM intact grossly ENT: Pharynx is clear, Moist mucous membranes, external ears, nose and mouth normal Neck: Supple, no masses, lymphadenopathy or JVD Respiratory: Clear to auscultation bilaterally with no wheezing, rhonchi, rales, no distress Cardiovascular: RRR, no murmurs, rubs, or gallops Back: No midline tenderness. No thoracic or lumbar midline tenderness, there is mild tenderness palpation along the paravertebral muscles in the upper back region, no decreased range of motion with flexion, extension and left and right lateral rotation Neurologic: Alert and oriented, moving all extremities, normal speech, no focal weakness, no cerebellar signs. Normal mentation Skin: warm and dry, No rash Psych: Normal mood Results 24 hrs Current Medications Medications Dose Sig/Melissa Start Time Status Last (Trade) Ordered Route PRN Stop Time Admin Dose Reason Admin Ketorolac 60 mg ONCE STAT 01/17/19 DC Tromethamine IM 08:52 (Toradol) 01/17/19 08:55 125 mg ONCE ONCE 01/17/19 DC Methylprednis IM 09:00 olone Sodium 01/17/19 09:00 Succinate (Solu-Medrol) Ketorolac 60 mg ONCE STAT 01/17/19 DC Tromethamine IM 09:25 (Toradol) 01/17/19 09:26 Procedures/MDM ER COURSE: The patient was given Toradol The medication was well tolerated and the patient reports improvement in symptoms. The patient was stable throughout ED course. I kept the patient and/or family informed of laboratory and diagnostic imaging results throughout the emergency room course. The patient was promptly evaluated and a treatment plan was devised based on H&P and other data. This plan was discussed with the patient who agreed and had no further questions or concerns prior to discharge. MEDICAL DECISION MAKIN-year-old male presents ED with complaints of upper back pain. Given history of having similar pain in the past and location of back pain being along the paravertebral muscles this is likely a muscle strain or muscle related pain. History and physical examination other data not consistent with processing including cauda equina syndrome, cord compression, infiltrative etiology, infectious etiology, epidural abscess, fracture, obstructive pyelonephritis, abdominal aortic aneurysm. Vitals are stable and patient can be managed outpatient with close follow-up. Advised patient to follow up with primary care in the next 48 hours. return to ED with any worsening symptoms DISPOSITION PLAN: We discussed follow up with the patient's primary care doctor within 24 to 48 hours. Patient counseled regarding my diagnostic impression and care plan. Prior to discharge all questions answered. Pt agrees with treatment plan and understands strict return precautions. Precautionary instructions provided including instructions to return to the ER if not improving or for any worsening or changing symptoms or concerns. SPECIALIST FOLLOW UP RECOMMENDED: None Patient has been advised to follow up with primary care in 1-2 days. Disclaimer: Inadvertent spelling and grammatical errors are likely due to EHR/dictation software use and do not reflect on the overall quality of patient care. Also, please note that the electronic time recorded on this note does not necessarily reflect the actual time of the patient encounter. Blood Pressure Assessment: Patient's blood pressure was elevated (>120/80) but appears stable without evidence of hypertension emergency or urgency. The patient was counseled about the risks of hypertension and urged to pursue outpatient monitoring and therapy within a week with their primary care physician. Departure Diagnosis: Primary Impression: Back pain Back pain location: thoracic back pain Chronicity: acute Back pain laterality: right Qualified Codes: M54.6 - Pain in thoracic spine Condition: Stable Patient Instructions: Back Pain (Acute Or Chronic) Referrals: COMMUNITY CLINICS YOU HAVE RECEIVED A MEDICAL SCREENING EXAM AND THE RESULTS INDICATE THAT YOU DO NOT HAVE A CONDITION THAT REQUIRES URGENT TREATMENT IN THE EMERGENCY DEPARTMENT. FURTHER EVALUATION AND TREATMENT OF YOUR CONDITION CAN WAIT UNTIL YOU ARE SEEN IN YOUR DOCTORS OFFICE WITHIN THE NEXT 1-2 DAYS. IT IS YOUR RESPONSIBILITY TO MAKE AN APPOINTMENT FOR FOLOW-UP CARE. IF YOU HAVE A PRIMARY DOCTOR --you should call your primary doctor and schedule an appointment IF YOU DO NOT HAVE A PRIMARY DOCTOR YOU CAN CALL OUR PHYSICIAN REFERRAL HOTLINE AT IF YOU CAN NOT AFFORD TO SEE A PHYSICIAN YOU CAN CHOSE FROM THE FOLLOWING [facility] CLINICS [facility] [address] [facility]. [facility] [address] [facility]. [facility] [address] [facility]. [facility] [address] [facility]. [facility] [address] [facility] [facility] [address] Additional Instructions: Patient advised to return to the ED immediately for new or worsening symptoms. Patient advised to follow up with primary care provider in the next 24-48 hours. Patient verbalized understanding and agrees with treatment plan and course of action. If patient has no primary care they may follow up with one of the [facility] clinics listed on the following page or one of the options listed below [facility] + [facility] [address] [place] [address] or [facility] [address] [place] [address] or [facility] [address] [place] [address] SHELIA DONNELLY PA-C January 17, 2019 09:32
== END 2019-01-17 10:01 | disposition home or self-care (01) ==
LOC: FTE 08:36
DX: M54.6 Pain in thoracic spine (principal); J45.909 Unspecified asthma, uncomplicated; F17.210 Nicotine dependence, cigarettes, uncomplicated
CPT/HCPCS: 96372; 99284; J1885

== ENCOUNTER 2019-02-11 08:30 | Emergency (ER) | payer BC ==
[~2019-02-11] VITALS: Ht 182.9 cm; Wt 114.6 kg
[~2019-02-11 08:30] MED LIST changes: +CYCL10TA7 PO
[2019-02-11 08:42] VITALS: BP 147/82; PULSE 63; RESP 18; Ht 182.9 cm; Wt 114.6 kg
--- NOTE | 2019-02-11 09:15 | ERD ---
ER Documentation Chief Complaint Chief Complaint DIARRHEA W/AP X1 DAY GENERALIZE ITCHY RASH ON/OFF HPI 38-year-old male presents to ED with complaints of nonbloody diarrhea x2 days. He reports that he went to the local food bank and got a questionable egg which he ate. He woke up next morning with an episode of diarrhea and then diarrhea continued up to today which is why he came to the ED. he denies any changes to his eating habit. He reports that he ate a huge burger and fries last night. Denies any nausea or vomiting or abd pain. He denies any past medical history. He states that he is feeling okay currently. He denies any fevers, any sick contacts, any recent travel. He also reports a rash that began on his back and has spread in a Thompson tree pattern down his back. ROS All systems reviewed and are negative except as per history of present illness. Medications Home Meds Active Scripts Ibuprofen* (Motrin*) 800 Mg Tab, 800 MG PO Q6, #30 TAB Prov:SHELIA DONNELLY PA-C 01/17/19 Cyclobenzaprine Hcl* (Cyclobenzaprine Hcl*) 10 Mg Tablet, 10 MG PO TID, #9 TAB Prov:SHELIA DONNELLY PA-C 01/17/19 Tramadol HCl (Tramadol HCl) 50 Mg Tablet, 50 MG PO Q6 PRN for SEVERE PAIN LEVEL 7-10, #20 TAB Prov:MIRYAM GALARZA NP 05/28/18 Ibuprofen* (Motrin*) 600 Mg Tab, 600 MG PO Q6H PRN for PAIN AND OR ELEVATED TEMP, #30 TAB Prov:MIRYAM GALARZA NP 05/28/18 Acetaminophen* (Tylophen*) 500 Mg Capsule, 1 CAP PO Q6H PRN for PAIN AND OR ELEVATED TEMP, #30 CAP Prov:AILEEN MAXWELL PA-C 03/22/18 Ibuprofen* (Motrin*) 600 Mg Tab, 600 MG PO Q6, #30 TAB Prov:AILEEN MAXWELL PA-C 03/22/18 Ibuprofen* (Motrin*) 800 Mg Tab, 800 MG PO Q6, #30 TAB Prov:ALEKS MACARIO PA-C 03/06/18 Prednisone* (Prednisone*) 50 Mg Tablet, 50 MG PO DAILY for 5 Days, TAB Prov:ENOC MELCHOR MD 01/25/18 Albuterol Sulfate* (Proair HFA*) 8.5 Gm Hfa.aer.ad, 2 PUFF INH Q6H PRN for WHEEZING AND SOB, #1 INHALER Prov:ENOC MELCHOR MD 01/25/18 Allergies Allergies: Coded Allergies: No Known Allergy (Unverified , 09/19/18) PMhx/Soc Medical and Surgical Hx: pt denies Medical Hx History of Surgery: Yes (MANDIBULAR SURGERY) Anesthesia Reaction: No Hx Respiratory Disorders: Yes (asthma) Hx Cardiac Disorders: No Hx Psychiatric Problems: No Hx Miscellaneous Medical Probl: Yes (borderline DM) Hx Alcohol Use: Yes (socially) Hx Substance Use: Yes (marijuana) Hx Tobacco Use: Yes FmHx Family History: No diabetes Physical Exam Vitals Vital Signs Date Temp Pulse Resp B/P (MAP) Pulse Ox O2 O2 Flow FiO2 Time Delivery Rate 02/11/19 97.3 63 18 147/82 96 08:42 (103) Physical Exam Const: No acute distress Head: Atraumatic Eyes: Normal Conjunctiva ENT: Normal External Ears, Nose and Mouth. Neck: Full range of motion. Resp: Clear to auscultation bilaterally Cardio: Regular rate and rhythm Abd: Soft, non tender, obese. Normal bowel sounds Skin: Nonspecific erythematous rash on his mid back that blanches and does not bleed. Rash slightly spreading to his abdomen Back: No midline or flank tenderness Ext: No cyanosis, or edema Neur: Awake and alert Psych: Normal Mood and Affect Procedures/MDM ED COURSE: The patient was stable throughout ED course. I kept the patient informed of laboratory and diagnostic imaging results throughout the ED course. MEDICATIONS GIVEN: [None.] MEDICAL DECISION MAKING: Patient is a 38-year-old male complaining about diarrhea after eating a q uestionable egg he got from [employer]. Reports several episodes of nonbloody diarrhea but states that he is eating well still. He denies any fevers or any abdominal pain or any signs of dehydration. I have low suspicion for other emergent processess such as mesenteric ischemia, lower lobe pneumonia, DKA, bowel perforation, cholecystitis, choledocholithiasis, ascending cholangitis, hepatic abscess, pancreatitis, PUD, gastritis, GERD, splenic rupture, diverticulitis, UTI, pyelonephritis, nephrolithiasis, appendicitis, constipation. Vital signs were reviewed. Patient is afebrile. Patient was not hypoxic. Patient was hemodynamically stable. PRESCRIPTION: None DISCHARGE: At this time, patient is stable for discharge and outpatient management. I have instructed the patient to follow-up with his/her primary care physician in 1-2 days. I have discussed with the patient the possibility of needing to see a specialist for further workup and imaging studies if symptoms persist. I have instructed the patient to promptly return to the ER for any new or worsening symptoms including increased pain, fever, nausea, vomiting, weakness or LOC. The patient and/or family expressed understanding of and agreement with this plan. All questions were answered. Home care instructions were provided. Disclaimer: Inadvertent spelling and grammatical errors are likely due to EHR/dictation software use and do not reflect on the overall quality of patient care. Also, please note that the electronic time recorded on this note does not necessarily reflect the actual time of the patient encounter. Departure Diagnosis: Primary Impression: Diarrhea Diarrhea type: unspecified type Qualified Codes: R19.7 - Diarrhea, unspecified Condition: Fair Patient Instructions: Self-Care for Vomiting and Diarrhea Referrals: [facility] CL[facility]ICS YOU HAVE RECEIVED A MEDICAL SCREENING EXAM AND THE RESULTS INDICATE THAT YOU DO NOT HAVE A CONDITION THAT REQUIRES URGENT TREATMENT IN THE EMERGENCY DEPARTMENT. FURTHER EVALUATION AND TREATMENT OF YOUR CONDITION CAN WAIT UNTIL YOU ARE SEEN IN YOUR DOCTORS OFFICE WITHIN THE NEXT 1-2 DAYS. IT IS YOUR RESPONSIBILITY TO MAKE AN APPOINTMENT FOR FOLOW-UP CARE. IF YOU HAVE A PRIMARY DOCTOR --you should call your primary doctor and schedule an appointment IF YOU DO NOT HAVE A PRIMARY DOCTOR YOU CAN CALL OUR PHYSICIAN REFERRAL HOTLINE AT IF YOU CAN NOT AFFORD TO SEE A PHYSICIAN YOU CAN CHOSE FROM THE FOLLOWING [facility] CLINICS [facility] [address] [facility] [address] [facility]. [facility] [address] [facility] [address] [facility] [address] [facility]. [facility] [address] [facility]. [facility] YOU HAVE RECEIVED A MEDICAL SCREENING EXAM AND THE RESULTS INDICATE THAT YOU DO NOT HAVE A CONDITION THAT REQUIRES URGENT TREATMENT IN THE EMERGENCY DEPARTMENT. FURTHER EVALUATION AND TREATMENT OF YOUR CONDITION CAN WAIT UNTIL YOU ARE SEEN IN YOUR DOCTORS OFFICE WITHIN THE NEXT 1-2 DAYS. IT IS YOUR RESPONSIBILITY TO MAKE AN APPOINTMENT FOR FOLOW-UP CARE. IF YOU HAVE A PRIMARY DOCTOR --you should call your primary doctor and schedule and appointment IF YOU DO NOT HAVE A PRIMARY DOCTOR YOU CAN CALL OUR PHYSICIAN REFERRAL HOTLINE AT . IF YOU CAN NOT AFFORD TO SEE A PHYSICIAN YOU CAN CHOSE FROM THE FOLLOWING [facility] INSTITUTIONS: [facility] [address] [place] [address] [facility] [address] [place], [place] [id number] [place] [address] [address] [place] [address] Additional Instructions: Call your primary care doctor TOMORROW for an appointment during the next 1-2 days.See the doctor sooner or return here if your condition worsens before your appointment time. LINCOLN OLIVEROS PA-C Feb 11, 2019 09:15
== END 2019-02-11 09:30 | disposition home or self-care (01) ==
LOC: FTE 08:30
DX: R19.7 Diarrhea, unspecified (principal); J45.909 Unspecified asthma, uncomplicated; Z87.891 Personal history of nicotine dependence
CPT/HCPCS: 99282

== ENCOUNTER 2019-04-05 17:35 | Emergency (ER) | payer BC ==
[~2019-04-05] VITALS: Ht 182.9 cm; Wt 114.4 kg
[2019-04-05 17:40] VITALS: Ht 182.9 cm; Wt 114.4 kg
--- NOTE | 2019-04-05 18:24 | ERD ---
ER Documentation Chief Complaint Chief Complaint pt reports cyst in groin HPI 38-year-old male with no reported past medical or surgical history who presents with complaint of right-sided testicular pain over the past year. Patient reports swelling and mild redness to left testicle. Also with complaint of pain, tenderness to touch. Pain sometimes radiates to left flank. He denies any history of trauma or injury to the area. He otherwise denies fevers, chills, discharge from penis, bleeding from penis. Has had trouble with ejaculation over the past 4 years intermittently but has been able to maintain erection. Has also had some intermittent dysuria. Patient states he has been evaluated by a physician as he has had not had insurance. He denies any prior history of STDs. His fiance is at the bedside during examination. Without complaint. Denies any family history of testicular cancer. ROS All systems reviewed and are negative except as per history of present illness. Medications Home Meds Active Scripts Ibuprofen* (Motrin*) 600 Mg Tab, 600 MG PO Q6, #30 TAB Prov:AVIS DIOR PA-C 04/05/19 Ibuprofen* (Motrin*) 800 Mg Tab, 800 MG PO Q6, #30 TAB Prov:SHELIA DONNELLY PA-C 01/17/19 Cyclobenzaprine Hcl* (Cyclobenzaprine Hcl*) 10 Mg Tablet, 10 MG PO TID, #9 TAB Prov:SHELIA DONNELLY PA-C 01/17/19 Tramadol HCl (Tramadol HCl) 50 Mg Tablet, 50 MG PO Q6 PRN for SEVERE PAIN LEVEL 7-10, #20 TAB Prov:MIRYAM GALARZA NP 05/28/18 Ibuprofen* (Motrin*) 600 Mg Tab, 600 MG PO Q6H PRN for PAIN AND OR ELEVATED TEMP, #30 TAB Prov:MIRYAM GALARZA NP 05/28/18 Acetaminophen* (Tylophen*) 500 Mg Capsule, 1 CAP PO Q6H PRN for PAIN AND OR ELEVATED TEMP, #30 CAP Prov:AILEEN MAXWELL PA-C 03/22/18 Ibuprofen* (Motrin*) 600 Mg Tab, 600 MG PO Q6, #30 TAB Prov:AILEEN MAXWELL PA-C 03/22/18 Ibuprofen* (Motrin*) 800 Mg Tab, 800 MG PO Q6, #30 TAB Prov:ALEKS MACARIO PA-C 03/06/18 Prednisone* (Prednisone*) 50 Mg Tablet, 50 MG PO DAILY for 5 Days, TAB Prov:ENOC MELCHOR MD 01/25/18 Albuterol Sulfate* (Proair HFA*) 8.5 Gm Hfa.aer.ad, 2 PUFF INH Q6H PRN for WHEEZING AND SOB, #1 INHALER Prov:ENOC MELCHOR MD 01/25/18 Allergies Allergies: Coded Allergies: No Known Allergy (Unverified , 09/19/18) PMhx/Soc History of Surgery: Yes (MANDIBULAR SURGERY) Anesthesia Reaction: No Hx Respiratory Disorders: Yes (asthma) Hx Cardiac Disorders: No Hx Psychiatric Problems: No Hx Miscellaneous Medical Probl: Yes (borderline DM) Hx Alcohol Use: Yes (socially) Hx Substance Use: Yes (marijuana) Hx Tobacco Use: Yes Smoking Status: Former smoker FmHx Family History: No diabetes, No coronary disease, No other Physical Exam Vitals Vital Signs Date Temp Pulse Resp B/P (MAP) Pulse Ox O2 O2 Flow FiO2 Time Delivery Rate 04/05/19 98.6 84 16 142/77 96 17:40 (98) Physical Exam I have reviewed the triage vital signs. Const: Well nourished, well developed, appears stated age Eyes: PERRL, no conjunctival injection HENT: NCAT, Neck supple without meningismus CV: RRR, Warm, well-perfused extremities RESP: CTAB, Unlabored respiratory effort GI: soft, non-tender, non-distended, no masses MSK: No gross deformities appreciated Skin: Warm, dry. No rashes : Left testicle hangs slightly lower than right, mild swelling, no prominent erythema, tenderness to palpation, cremasteric reflex intact bilaterally Neuro: grossly non focal Psych: Appropriate mood and affect. Results 24 hrs Laboratory Tests Test 04/05/19 18:31 Urine Color YELLOW Urine Clarity SLIGHTLY CLOUDY Urine pH 6.0 Urine Specific [place] 1.023 Urine Ketones NEGATIVE mg/dL Urine Nitrite NEGATIVE mg/dL Urine Bilirubin NEGATIVE mg/dL Urine Urobilinogen NEGATIVE mg/dL Urine Leukocyte Esterase NEGATIVE Kale/ul Urine Microscopic RBC 3 /HPF Urine Microscopic WBC 2 /HPF Urine Amorphous Crystals FEW /HPF Urine Bacteria FEW /HPF Urine Mucus FEW /HPF Urine Hemoglobin 1+ mg/dL Urine Glucose NEGATIVE mg/dL Urine Total Protein NEGATIVE mg/dl Procedures/MDM 38-year-old male presents with complaint of testicular pain. The patient is suffering from testicular pain, but based on the history, exam, and testing, I do not suspect that the patient has testicular torsion, abscess, severe cellulitis, Fourniers gangrene, or other emergent cause as below: Unlikely torsion: No pain currently, cremasteric reflex present Unlikely varicocele: no visibly or palpably enlarged vein Unlikely epididymitis: no urethral discharge, no fever, no MSM, no epididymal TTP or swelling ED course: Testicular ultrasound with finding of small left sided spermatocele he, patient advised to establish care with PMD and have urology follow-up scheduled Plan follow up with primary care doctor for symptom re-check and possible refe rral to urology. Discussed return precautions at bedside. Discharge. DISPOSITION PLAN: We discussed follow up with the patient's primary care doctor within 24 to 48 hours. Patient counseled regarding my diagnostic impression and care plan. Prior to discharge all questions answered. Pt agrees with treatment plan and understands strict return precautions. Precautionary instructions provided including instructions to return to the ER if not improving or for any worsening or changing symptoms or concerns. Disclaimer: Inadvertent spelling and grammatical errors are likely due to EHR/dictation software use and do not reflect on the overall quality of patient care. Also, please note that the electronic time recorded on this note does not necessarily reflect the actual time of the patient encounter. Departure Diagnosis: Primary Impression: Disorder of male genital organs Condition: Stable AVIS DIOR PA-C Apr 05, 2019 18:24
[2019-04-05 20:17] VITALS: BP 133/75; PULSE 72; RESP 16
== END 2019-04-05 20:18 | disposition home or self-care (01) ==
LOC: FTE 17:35
DX: N50.9 Disorder of male genital organs, unspecified (principal); J45.909 Unspecified asthma, uncomplicated; Z87.891 Personal history of nicotine dependence
CPT/HCPCS: 76870; 81001

== ENCOUNTER 2019-05-09 06:33 | Emergency (ER) | payer BC ==
[~2019-05-09] VITALS: Ht 177.8 cm; Wt 100.0 kg
[~2019-05-09 06:33] MED LIST changes: +CYCL5TAB PO; +DOXY-214 PO; +HYDR-4011 PO; +MED4DP PO; +NAPR-985 PO; +ONDA4TAB14 PO
[2019-05-09 06:36] VITALS: BP 144/83; PULSE 84; RESP 18; Ht 177.8 cm; Wt 100.0 kg
[2019-05-09] MEDS ORDERED: ONDANSETRON (ODT) 4 MG TAB ODT STA (06:51)
[2019-05-09] MEDS ORDERED: HYDROCODONE/APAP (5/325) TAB PO ONE (07:00)
[2019-05-09] MEDS ORDERED: DEXAMETHASONE 10 MG/ML 1 ML INJ IM ONE (07:00)
== END 2019-05-09 07:17 | disposition home or self-care (01) ==
LOC: FTE 06:33
DX: M54.5 Low back pain (principal)
CPT/HCPCS: 81003; 96372; 99284; J1100; Z7610

== ENCOUNTER 2019-05-14 00:51 | Emergency (ER) | payer BC ==
[~2019-05-14] VITALS: Ht 182.9 cm; Wt 112.7 kg
[2019-05-14 01:07] VITALS: BP 138/76; PULSE 57; RESP 18; Ht 182.9 cm; Wt 112.7 kg
[2019-05-14] MEDS ORDERED: ONDANSETRON (ODT) 4 MG TAB ODT STA (03:38)
[2019-05-14] MEDS ORDERED: HYDROCODONE/APAP (10/325) TAB PO ONE (04:00)
[2019-05-14] MEDS ORDERED: CEFTRIAXONE 1 GM INJ IM ONE (05:00)
== END 2019-05-14 05:09 | disposition home or self-care (01) ==
LOC: FTE 00:51
DX: N45.2 Orchitis (principal); K40.90 Unilateral inguinal hernia, without obstruction or gangrene, not specified as recurrent; R91.1 Solitary pulmonary nodule; F17.210 Nicotine dependence, cigarettes, uncomplicated
CPT/HCPCS: 74176; 76870; 81003; 87086; 96372; 99285; J0696; Z7610